=== PATIENT | male | born 2000 | race African-American/Black ===

== ENCOUNTER 2023-01-21 20:39 | Emergency (ER) | payer OTHER ==
[2023-01-21 20:50] VITALS: BP 133/85; PULSE 69; RESP 17; TEMP 98.5; BMI 22.9
== END 2023-01-21 23:33 | disposition left against medical advice (07) ==
LOC: JER 20:39 → JERFT 20:39 → JER 23:33
DX: R07.9 Chest pain, unspecified (principal)
CPT/HCPCS: 93005; 93010; 99283-25